=== PATIENT | female | born 1985 | race Caucasian/White ===

== ENCOUNTER 2020-05-23 08:13 | Outpatient (CLI) | payer BC, SELFPAY ==
--- NOTE | ~2020-05-23 | MM_ITS ---
EXAMINATION: MM screening pam BI w martine HISTORY: Screening mammogram TECHNIQUE: Craniocaudal and mediolateral oblique 3-D tomosynthesis images were obtained and synthetic 2-D images were generated. CAD analysis was submitted and interpreted. COMPARISON: None, baseline BREAST PARENCHYMAL COMPOSITION: The breasts are heterogeneously dense, which may obscure small masses . FINDINGS: Benign-appearing intramammary lymph nodes are noted in the upper outer quadrants of the ovidio asts. There is no evidence of suspicious mass, calcification, or architectural distortion to suggest malignancy in either breast. IMPRESSION: 1. No mammographic evidence of malignancy. 2. Recommend routine screening mammography beginning at age 40. BI-RADS Category 2: Benign finding(s). Reviewed, dictated and finalized at location A. [employer]PA[employer]CTOR
== END 2020-05-23 08:14 | disposition home or self-care (01) ==
LOC: ANHIMG 08:22
PROVIDERS: PCP Internal Medicine
DX: Z12.31 Encounter for screening mammogram for malignant neoplasm of breast (principal)
CPT/HCPCS: 77063; 77067